=== PATIENT | female | born 1930 | race Two or more races ===

== ENCOUNTER → 2016-06-29 | Outpatient (CLI) | payer MEDICARE, OTHER ==
[~2016-06-29] MED LIST: ACETAMINOPHEN500 MG ORAL; ADVAIR 250/501 PUFFS INH; ALBUTEROL2.5 MG/3 M HHN; AMLODIPINE BES2.5 MG ORAL; ATORVASTATIN CA10 MG ORAL; Aspirin ORAL; BACLOFEN10 MG ORAL; BENICAR20 MG ORAL; BENICAR5 MG ORAL; Benzonatate ORAL; Cyclobenzaprine Hcl ORAL; DEPAKOTE250 MG ORAL; DESYREL100 MG ORAL; DIOVAN HCT 3201 EACH ORAL; FOLGARD TABLET1 EAC1 ORAL; FUROSEMIDE20 M1 ORAL; GLIPIZIDE5 MG ORAL; GLUCOTROL5 MG PO; HYDROCODON-ACE1 EA15 ORAL; IBUPROFEN200 MG ORAL; KENALOG 0.1% CR15 GM APPLIC; LEVAQUIN250 M1 ORAL; LEXAPRO10 MG ORAL; LIPITOR10 MG PO; LIPITOR20 MG ORAL; MONTELUKAST SOD10 MG ORAL; NEXIUM40 MG ORAL; NORVASC5 MG ORAL; OMEPRAZOLE40 M1 ORAL; PAROXETINE HCL10 MG ORAL; PREDNISONE20 MG ORAL; PROMETHAZINE-C118 M1 ORAL; PROTONIX40 MG ORAL; SIMVASTATIN20 MG ORAL; TRAZODONE HCL150 MG ORAL
[2016-06-29 11:24] LABS: APPEARANCE,URINE CLEAR; KETONES,URINE NEGATIVE (NEGATIVE); LEUKOCYTE ESTERASE ,URINE 2+ (NEGATIVE); NITRITE,URINE NEGATIVE (NEGATIVE); PH,URINE 6 (4.5-8.0); PROTEIN,URINE NEGATIVE (NEGATIVE); UROBILINOGEN,URINE NORMAL MG/DL (0.0-1.0)
[2016-06-29 11:26] LABS: BASOPHILS % (AUTO) 0.5 % (0.0-2.0); EOSINOPHILS % (AUTO) 2.5 % (0.0-3.0); LYMPHOCYTES % (AUTO) 28.5 % (20.0-45.0); MEAN CORPUSCULAR HEMOGLOBIN 30.8 PG (27.0-31.0); MEAN CORPUSCULAR HGB CONC 31.7 G/DL (32.0-36.0); MEAN CORPUSCULAR VOLUME 97 FL (80-99); MEAN PLATELET VOLUME 6.5 FL (6.5-10.1); MONOCYTES % (AUTO) 9.8 % (1.0-10.0); NEUTROPHILS % (AUTO) 58.7 % (45.0-75.0); PLATELET COUNT 242 K/UL (150-450); RED BLOOD COUNT 4.05 M/UL (4.20-5.40); RED CELL DISTRIBUTION WIDTH 14.3 % (11.6-14.8); WHITE BLOOD COUNT 7.3 K/UL (4.8-10.8)
[2016-06-29 11:38] LABS: HEMOGLOBIN A1C 7.5 % (< 6.0)
[2016-06-29 11:41] LABS: BACTERIA,URINE FEW /HPF; RBC,URINE 0-2 /HPF (0 - 2); SQUAMOUS EPITHELIAL CELL,UR FEW /LPF (NONE/OCC)
[2016-06-29 11:47] LABS: ALANINE AMINOTRANSFERASE 24 U/L (3-33); ANION GAP 17 (5-15); ASPARTATE AMINO TRANSFERASE 30 U/L (5-40); CALCIUM 9.7 mg/dL (8.6-10.2); CARBON DIOXIDE 27 mEQ/L (20-30); CHLORIDE 97 mEQ/L (98-107); CHOLESTEROL 199 mg/dL (< 200); CHOLESTEROL/HDL RATIO 3.8 (3.3-4.4); CREATININE 1.1 mg/dL (0.5-0.9); HEMOLYSIS 2; LDL CHOLESTEROL (CALC.) 101 mg/dL (60-99); POTASSIUM 4.7 mEQ/L (3.4-4.9); SODIUM 141 mEQ/L (135-145); TOTAL PROTEIN 7.9 g/dL (6.6-8.7)
== END | disposition home or self-care (01) ==
LOC: LAB 10:55
DX: E11.9 Type 2 diabetes mellitus without complications (principal); I10 Essential (primary) hypertension
CPT/HCPCS: 36415; 80053; 80061; 81001; 82306; 83036; 84443; 85025